=== PATIENT | female | born 1995 | race Caucasian/White ===

== ENCOUNTER 2017-07-04 19:22 | Emergency (ER) | payer MEDICAID, OTHER ==
[~2017-07-04] VITALS: Ht 162.6 cm; Wt 54.4 kg
[2017-07-04 19:32] VITALS: BP 122/86
== END 2017-07-04 21:31 | disposition home or self-care (01) ==
LOC: EDBD 19:22 → ER 19:29
DX: J02.9 Acute pharyngitis, unspecified (principal); R55 Syncope and collapse
CPT/HCPCS: 71045